=== PATIENT | male | born 1960 | race Caucasian/White ===

== ENCOUNTER 2023-11-18 06:32 | Day surgery (SDC) | payer BC, SELFPAY ==
[2023-11-14 10:04] LABS: Hematocrit 39.6 % (39.0-52.0); Hemoglobin 13.9 g/dL (13.0-18.0); Mean Corp Hgb Conc. 35.1 g/dL (33.0-37.0); Mean Corpuscular Hgb 32.3 pg (27.0-31.0); Mean Corpuscular Volume 92.1 fL (80.0-94.0); Mean Platelet Volume 10.5 fL (7.4-10.4); Platelet Count 154 10^3/uL (130-400); Red Cell Dist. Width 12.3 % (11.5-14.5); White Blood Cell Count 3.7 10^3/uL (4.8-10.8)
[2023-11-14 10:30] LABS: Blood Urea Nitrogen 17 mg/dl (9-20); Calcium 9.4 mg/dl (8.4-10.2); Carbon Dioxide 31 mmol/L (22-30); Chloride 98 mmol/L (98-107); Glucose 94 mg/dl (70-99); Potassium 4.5 mmol/L (3.5-5.1); Sodium 136 mmol/L (135-145); eGFR > 60.00
[2023-11-14 13:27] VITALS: BMI 24.8
[2023-11-18] VITALS (8 sets, daily range): BP systolic 144–156; BP diastolic 79–100; BMI 24.8
[2023-11-18] MEDS: CELEBREX 200 MG PO (09:03)
[2023-11-18] MEDS: TYLENOL 1000 MG PO (09:03)
[2023-11-18] MEDS: NORMOSOL-R 1000 IV (09:10)
== END 2023-11-18 12:49 | disposition home or self-care (01) ==
LOC: SDS 06:32
PROVIDERS: ATTENDING PHYSICIAN Specialist; FAMILY PHYSICIAN Nurse Practitioner Family
DX: S83.241A Other tear of medial meniscus, current injury, right knee, initial encounter (principal); S83.281A Other tear of lateral meniscus, current injury, right knee, initial encounter; X58.XXXA Exposure to other specified factors, initial encounter; M94.261 Chondromalacia, right knee
CPT/HCPCS: 29880; 36415; 80048; 85027; 93005

== ENCOUNTER 2024-02-07 06:37 | Outpatient (RCR) | payer BC, SELFPAY | END 2024-02-07 23:59 | disposition home or self-care (01) | LOC: RPT 06:37 | PROVIDERS: ATTENDING PHYSICIAN Specialist; FAMILY PHYSICIAN Nurse Practitioner Family | DX: Z47.89 Encounter for other orthopedic aftercare (principal); R26.89 Other abnormalities of gait and mobility; M25.561 Pain in right knee; Z73.6 Limitation of activities due to disability | CPT/HCPCS: 97110; 97140; 97162 ==

== ENCOUNTER 2024-02-24 15:18 | Outpatient (RCR) | payer BC, SELFPAY | END 2024-02-24 23:59 | disposition home or self-care (01) | LOC: RPT 15:18 | PROVIDERS: ATTENDING PHYSICIAN Specialist; FAMILY PHYSICIAN Nurse Practitioner Family | DX: Z47.89 Encounter for other orthopedic aftercare (principal); R26.89 Other abnormalities of gait and mobility; Z98.890 Other specified postprocedural states | CPT/HCPCS: 97110; 97112; 97140 ==

== ENCOUNTER → 2024-04-26 15:04 | Outpatient (REF) | payer BC, SELFPAY | LOC: RAD 15:04 | PROVIDERS: ATTENDING PHYSICIAN Family Medicine; REFERRING PHYSICIAN Surgery | DX: K40.90 Unilateral inguinal hernia, without obstruction or gangrene, not specified as recurrent (principal) | CPT/HCPCS: 76882 ==

== ENCOUNTER → 2024-04-27 06:47 | Outpatient (REF) | payer BC, SELFPAY ==
[2024-04-27 08:38] LABS: Glucose 93 mg/dl (70-99)
== END ==
LOC: REG 06:47
PROVIDERS: ATTENDING PHYSICIAN Family Medicine
DX: R73.01 Impaired fasting glucose (principal)
CPT/HCPCS: 36415; 82947

== ENCOUNTER → 2024-04-30 08:15 | Outpatient (REF) | payer BC, SELFPAY | LOC: MRI 3T 08:15 | PROVIDERS: ATTENDING PHYSICIAN Internal Medicine Cardiovascular Disease; FAMILY PHYSICIAN Nurse Practitioner Family; REFERRING PHYSICIAN Orthopaedic Surgery | DX: M54.50 Low back pain, unspecified (principal); I10 Essential (primary) hypertension; F90.0 Attention-deficit hyperactivity disorder, predominantly inattentive type; G47.33 Obstructive sleep apnea (adult) (pediatric) | CPT/HCPCS: 72148; 93306 ==

== ENCOUNTER 2024-05-23 06:14 | Day surgery (SDC) | payer BC, SELFPAY ==
--- NOTE | 2024-04-11 09:46 | CM ---
Addendum entered by Priti Graham 05/01/24 13:30:
Surgery date has changed to 05/23.
Addendum entered by Priti Graham 04/25/24 11:22:
Spoke again with patient. He will be borrowing a rolling walker from a friend and was told to bring it with him into the hospital on the day of surgery.
Original Note:
Patient is scheduled for an elective R TKR on 05/02/24- he is a same day patient. Spoke with patient prior to surgery. Introduced role of Orthopedic Navigator. Patient reports that he lives with his , son and daughter in a split level home. There
are no steps to enter, three to the second and eight steps to the third. He currently functions independently. He has a cane and crutches. He has never had VN services. PCP is Lulu Ortega.
Discussed orthopedic program and post surgical plans. Reviewed that he will have VN services initially and will then start outpatient PT. Patient selects [facility] (face sheet faxed to [facility] to facilitate confirmation of benefits) for his home care
needs and will come to for outpatient PT.
Patient is in agreement with plan and states that his son, Derrick ([phone]) will be home with him.
Patient will complete online education.
Plan: Orthopedic Navigator will remain available to assist with the care of patient and will reassess discharge needs after surgery.
[2024-04-18 08:15] VITALS: BMI 26.2
[2024-04-18 08:59] LABS: Hematocrit 39.8 % (39.0-52.0); Hemoglobin 14.3 g/dL (13.0-18.0); Mean Corp Hgb Conc. 35.9 g/dL (33.0-37.0); Mean Corpuscular Hgb 31.9 pg (27.0-31.0); Mean Corpuscular Volume 88.8 fL (80.0-94.0); Platelet Count 141 10^3/uL (130-400); Red Blood Cell Count 4.48 10^6/uL (4.70-6.10); Red Cell Dist. Width 12.6 % (11.5-14.5); White Blood Cell Count 3.7 10^3/uL (4.8-10.8)
[2024-04-18 09:53] LABS: ALT (SGPT) 34 U/L (0-50); AST (SGOT) 35 U/L (17-59); Albumin 4.5 g/dl (3.5-5.0); Alkaline Phosphatase 49 U/L (38-126); Blood Urea Nitrogen 18 mg/dl (9-20); Calcium 9.6 mg/dl (8.4-10.2); Carbon Dioxide 24 mmol/L (22-30); Chloride 106 mmol/L (98-107); Estimated Creatinine Clearance 96 ml/min; Glucose 140 mg/dl (70-99); Potassium 4.3 mmol/L (3.5-5.1); Sodium 139 mmol/L (135-145); Total Bilirubin 0.9 mg/dl (0.2-1.3); Total Protein 6.6 g/dl (6.3-8.2); eGFR > 60.00
[2024-04-18 11:04] LABS: Glycohemoglobin (HgbA1c) 5.6 % (4.0-5.6)
[2024-04-25 09:31] VITALS: BMI 26.2
[2024-05-23] VITALS (16 sets, daily range): BP systolic 114–140; BP diastolic 62–87
[2024-05-23] MEDS: CELEBREX 200 MG PO (07:55)
[2024-05-23] MEDS: TYLENOL 650 MG PO (07:56)
[2024-05-23] MEDS: NORMOSOL-R 1000 IV (07:56)
[2024-05-23] MEDS: ANCEF 5 IV (13:02)
== END 2024-05-23 14:21 | disposition home or self-care (01) ==
LOC: SDS 06:14
PROVIDERS: ATTENDING PHYSICIAN Orthopaedic Surgery; FAMILY PHYSICIAN Nurse Practitioner Family; REFERRING PHYSICIAN Internal Medicine Cardiovascular Disease
DX: M17.11 Unilateral primary osteoarthritis, right knee (principal)
CPT/HCPCS: 27447; 36415; 73560; 80053; 83036; 85027; 87070; 97162; C1713; C1776

== ENCOUNTER 2024-06-08 10:04 | Outpatient (RCR) | payer BC, SELFPAY | END 2024-06-08 23:59 | disposition home or self-care (01) | LOC: RPT 10:04 | PROVIDERS: ATTENDING PHYSICIAN Orthopaedic Surgery; FAMILY PHYSICIAN Nurse Practitioner Family | DX: M17.11 Unilateral primary osteoarthritis, right knee (principal); Z47.1 Aftercare following joint replacement surgery; Z96.651 Presence of right artificial knee joint; Z73.6 Limitation of activities due to disability | CPT/HCPCS: 97010; 97110; 97140; 97161 ==

== ENCOUNTER 2024-06-27 06:20 | Day surgery (SDC) | payer BC, SELFPAY ==
[2024-06-27] VITALS (8 sets, daily range): BP systolic 124–172; BP diastolic 70–89; BMI 25.5
[2024-06-27] MEDS: TYLENOL 1000 MG PO (08:30)
[2024-06-27] MEDS: CELEBREX 200 MG PO (08:30)
[2024-06-27] MEDS: NORMOSOL-R/PLASMALYTE-A 1000 IV (08:32)
[2024-06-27] MEDS: DILAUDID 0.5 MG IV (09:04)
[2024-06-27] MEDS: DILAUDID 0.25 MG IV (09:20)
[2024-06-27] MEDS: ROXICODONE 5 MG PO (10:01)
== END 2024-06-27 10:30 | disposition home or self-care (01) ==
LOC: SDS 06:20
PROVIDERS: ATTENDING PHYSICIAN Orthopaedic Surgery
DX: M24.661 Ankylosis, right knee (principal); M17.11 Unilateral primary osteoarthritis, right knee
CPT/HCPCS: 27570

== ENCOUNTER 2024-07-06 06:32 | Outpatient (RCR) | payer BC, SELFPAY | END 2024-07-06 23:59 | disposition home or self-care (01) | LOC: RPT 06:32 | PROVIDERS: ATTENDING PHYSICIAN Orthopaedic Surgery; FAMILY PHYSICIAN Nurse Practitioner Family | DX: Z47.1 Aftercare following joint replacement surgery (principal); Z96.651 Presence of right artificial knee joint; M17.11 Unilateral primary osteoarthritis, right knee; Z73.6 Limitation of activities due to disability | CPT/HCPCS: 97010; 97110; 97140; 97530 ==

== ENCOUNTER 2024-08-08 06:27 | Outpatient (RCR) | payer BC, SELFPAY | END 2024-08-08 23:59 | disposition home or self-care (01) | LOC: RPT 06:27 | PROVIDERS: ATTENDING PHYSICIAN Orthopaedic Surgery; FAMILY PHYSICIAN Nurse Practitioner Family | DX: Z47.1 Aftercare following joint replacement surgery (principal); M17.11 Unilateral primary osteoarthritis, right knee; Z73.6 Limitation of activities due to disability; M62.81 Muscle weakness (generalized); Z96.651 Presence of right artificial knee joint | CPT/HCPCS: 97010; 97110; 97112; 97140; 97530 ==

== ENCOUNTER → 2024-08-10 14:54 | Outpatient (REF) | payer BC, SELFPAY | LOC: RAD 14:54 | PROVIDERS: ATTENDING PHYSICIAN Psychiatry & Neurology Neurology; FAMILY PHYSICIAN Family Medicine | DX: I82.401 Acute embolism and thrombosis of unspecified deep veins of right lower extremity (principal) | CPT/HCPCS: 93971 ==

== ENCOUNTER → 2024-08-28 08:41 | Outpatient (REF) | payer BC, SELFPAY | LOC: CLAB 08:41 | PROVIDERS: ATTENDING PHYSICIAN Dermatology | DX: D48.5 Neoplasm of uncertain behavior of skin (principal) | CPT/HCPCS: 88305 ==

== ENCOUNTER 2024-08-31 14:28 | Outpatient (RCR) | payer BC, SELFPAY | END 2024-08-31 23:59 | disposition home or self-care (01) | LOC: RPT 14:28 | PROVIDERS: ATTENDING PHYSICIAN Orthopaedic Surgery; FAMILY PHYSICIAN Nurse Practitioner Family | DX: Z47.1 Aftercare following joint replacement surgery (principal); M17.11 Unilateral primary osteoarthritis, right knee; Z73.6 Limitation of activities due to disability; Z96.651 Presence of right artificial knee joint | CPT/HCPCS: 97010; 97110; 97112; 97140; 97530 ==

== ENCOUNTER 2024-10-05 07:03 | Outpatient (RCR) | payer BC, SELFPAY | END 2024-10-05 13:01 | disposition home or self-care (01) | LOC: RPT 07:03 | PROVIDERS: ATTENDING PHYSICIAN Orthopaedic Surgery; FAMILY PHYSICIAN Nurse Practitioner Family | DX: Z47.1 Aftercare following joint replacement surgery (principal); M17.11 Unilateral primary osteoarthritis, right knee; Z73.6 Limitation of activities due to disability; Z96.651 Presence of right artificial knee joint | CPT/HCPCS: 97110; 97112 ==

== ENCOUNTER → 2025-01-17 06:33 | Outpatient (REF) | payer BC, SELFPAY ==
[2025-01-17 08:23] LABS: ALT (SGPT) 30 U/L (0-50); AST (SGOT) 26 U/L (17-59); Albumin 4.9 g/dl (3.5-5.0); Alkaline Phosphatase 52 U/L (38-126); Blood Urea Nitrogen 20 mg/dl (9-20); Calcium 9.9 mg/dl (8.4-10.2); Carbon Dioxide 31 mmol/L (22-30); Chloride 104 mmol/L (98-107); Glucose 94 mg/dl (70-99); HDL Cholesterol 57 mg/dl; LDL Cholesterol, Calculated 115 mg/dl; Potassium 4.6 mmol/L (3.5-5.1); Sodium 141 mmol/L (135-145); Total Bilirubin 0.7 mg/dl (0.2-1.3); Total Cholesterol 187 mg/dl (50-199); Triglyceride 78 mg/dl (10-149); Very Low Density Lipoprotein 15 mg/dl (0-30); eGFR > 60.00
[2025-01-17 09:02] LABS: Glycohemoglobin (HgbA1c) 5.4 % (4.0-5.6)
[2025-01-17 19:45] LABS: Rubella Positive
== END ==
LOC: REG 06:33
PROVIDERS: ATTENDING PHYSICIAN Nurse Practitioner Family
DX: Z01.84 Encounter for antibody response examination (principal); E78.2 Mixed hyperlipidemia; R73.01 Impaired fasting glucose
CPT/HCPCS: 36415; 80053; 80061; 83036; 86735; 86762; 86765

== ENCOUNTER → 2025-08-15 10:47 | Outpatient (REF) | payer BC, SELFPAY | LOC: REG 10:47 | PROVIDERS: ATTENDING PHYSICIAN Orthopaedic Surgery; FAMILY PHYSICIAN Nurse Practitioner Family | DX: M25.522 Pain in left elbow (principal); M25.422 Effusion, left elbow | CPT/HCPCS: 87070; 87075; 87205 ==